=== PATIENT | female | born 1985 ===

== ENCOUNTER 2017-09-06 08:12 | Emergency (ER) | payer SELFPAY ==
[2017-09-06 08:28] VITALS: BP 125/95
--- NOTE | 2017-09-06 08:49 | UC ---
Alexandra Alfonso Gabriel, scribed for Michelle Serrano MD on 09/06/17 at 0841 . Throat Pain/Nasal Ariel HPI - HPI Summary HPI Summary: This patient is a 32 year old F presenting to [facility] [place] with a chief complaint of nasal congestion since 09-03-17. The patient rates the pain 0/10 in severity. Patient reports low grade fever, nasal congestion, productive cough, wheezing, ears being plugged, chest congestion, SOB, and sinus pressure. Patient denies OSORIO , sore throat, n/v/d, ABD pain, and CP. Pt has taken ibuprofen and mucinex, last taken the last night. NKDA. - History of Current Complaint Chief Complaint: UCGeneralIllness Stated Complaint: COUGH CONGESTION WHEEZING Time Seen by Provider: 09/06/17 08:27 Hx Obtained From: Patient Hx Last Menstrual Period: 4 weeks ago Onset/Duration: Lasting Days, Still Present Severity: Moderate Pain Intensity: 0 Pain Scale Used: 0-10 Numeric Cough: Productive Associated Signs & Symptoms: Positive: Negative - OSORIO, sore throat, n/v/d, ABD pain, and CP, Other - low grade fever, nasal congestion, productive, cough, wheezing, ears are plugged, chest congestion, SOB, sinus pressure, - Allergies/Home Medications Allergies/Adverse Reactions: Allergies Allergy/AdvReac Type Severity Reaction Status Date / Time No Known Allergies Allergy Verified 09/06/17 08:18 Home Medications: Home Medications Dextromethorphn/Acetaminoph/Cp [Vicks Nyquil Cold & Flu Liquid] 1 dose PO DAILY PRN 09/06/17 [History Confirmed 09/06/17] guaiFENesin [Mucinex] 1 tab PO Q12HR PRN 09/06/17 [History Confirmed 09/06/17] PMH/Surg Hx/FS Hx/Imm Hx Previously Healthy: Yes Other History Of: Negative For: HIV, Hepatitis B, Hepatitis C - Surgical History Surgical History: Yes Surgery Procedure, Year, and Place: nose cauterization at 9 years old, plate and 9 screws in right ankle-06/2012 - Family History Known Family History: Positive: Cardiac Disease - mother had 2 AZ's and aunt had an aortic dissection Negative: Diabetes, Renal Disease, Respiratory Disease, Seizure Disorder - Social History Occupation: Employed Full-time - at a salon Lives: Alone Alcohol Use: Rare Substance Use Type: Marijuana Substance Use Comment - Amount & Last Used: occasional Smoking Status (MU): Never Smoked Tobacco - Immunization History Most Recent Tetanus Shot: utd Review of Systems Constitutional: Fever Skin: Negative Eyes: Negative ENT: Ear Ache, Nasal Discharge, Sinus Congestion, Sinus Pain/Tenderness Respiratory: Shortness Of Breath, Cough, Other - wheezing and chest congestion Cardiovascular: Negative - CP Gastrointestinal: Negative Genitourinary: Negative Motor: Negative Neurovascular: Negative Musculoskeletal: Negative Neurological: Negative Psychological: Negative Is Patient Immunocompromised?: No All Other Systems Reviewed And Are Negative: Yes Physical Exam Triage Information Reviewed: Yes Appearance: Ill-Appearing - congested, looks mildly unwell Vital Signs: Initial Vital Signs Temp 99.8 F 09/06/17 08:19 Pulse 99 09/06/17 08:19 Resp 20 09/06/17 08:19 BP 125/95 09/06/17 08:19 Pulse Ox 98 09/06/17 08:19 Eyes: Positive: Conjunctiva Clear ENT: Positive: Pharynx normal, TM dull, TM red - bilateral serous otitis with erythema of TM's. Dental Exam: Normal Neck: Positive: Supple, Nontender, No Lymphadenopathy Respiratory: Positive: Normal breath sounds, No respiratory distress, Expiration - mildly prolonged. Cardiovascular Exam: Normal Cardiovascular: Positive: RRR, No Murmur Neurological: Positive: Alert Psychological Exam: Normal Throat Pain/Nasal Course/Dx - Course Course Of Treatment: augmentin for treatment of sinusitis. Assessment/Plan: BP noted and advised to follow up with PCP. Patients medication reviewed during this visit. - Differential Dx/Diagnosis Provider Diagnoses: Elevated blood pressure without a previous diagnoses of hypertension Discharge - Discharge Plan Condition: Stable Disposition: HOME Prescriptions: Amoxicillin/Clavulanate TAB* [Augmentin TAB 875*] 875 mg PO BID #20 tab Benzonatate CAP* [Tessalon 100 MG CAP*] 100 mg PO TID PRN #30 cap PRN Reason: Cough Patient Education Materials: Sinusitis (ED) Referrals: No Primary Care Phys,NOPCP [Primary Care Provider] - Additional Instructions: You have been prescribed augmentin for treatment of sinus infection. This can cause some nausea, and you can take it with food if it is upsetting your stomach. Tessalon perles are a cough suppressant which should not cause sedation. Your blood pressure was elevated during today's visit. Please follow up with your primary care provider in 1-2 weeks. The documentation as recorded by the Alexandra ybarra Gabriel accurately reflects the service I personally performed and the decisions made by me, Michelle Serrano MD.
== END 2017-09-06 08:50 | disposition home or self-care (01) ==
LOC: UCEAST 08:12
DX: R03.0 Elevated blood-pressure reading, without diagnosis of hypertension (principal)
CPT/HCPCS: 99202; G0463